=== PATIENT | male | born 1970 | race Caucasian/White ===

== ENCOUNTER 2023-07-03 08:59 | Emergency (ER) | payer BC ==
[~2023-07-03] VITALS: Ht 180.3 cm; Wt 99.8 kg
[~2023-07-03 08:59] MED LIST: BACTRIM DS 8001 TA1 PO; KEFLEX500 MG PO; LISINOPRIL20 MG PO
[2023-07-03] MEDS ORDERED: LOSARTAN-HCTZ1 EAC1 PO (09:27)
[2023-07-03 10:07] LABS: BASO # 0.1 10*3/uL (0.0-0.1); BASO % 1.1 % (0.0-1.0); EOS # 0.2 10*3/uL (0.0-0.4); HEMATOCRIT 48.4 % (42.0-52.0); MEAN CELL VOLUME 90.8 fl (80.0-94.0); MEAN CORPUSCULAR HGB 32.8 pg (27.0-31.0); MEAN CORPUSCULAR HGB CONC 36.2 g/dl (33.0-37.0); MEAN PLATELET VOLUME 7.8 fl (9.6-12.3); MONO # 0.8 10*3/uL (0.1-1.0); MONO % 8.5 % (3.0-9.0); NEUT # 7.5 10*3/uL (2.3-7.9); NEUT % 78.1 % (47.0-73.0); PLATELET COUNT AUTOMATED 240 10*3/uL (130-400); RED BLOOD COUNT 5.33 10*6/uL (4.50-5.90); RED CELL DISTRI WIDTH 11.6 % (0-14.5); WHITE BLOOD COUNT 9.6 10*3/uL (4.8-10.8)
[2023-07-03 10:22] LABS: ACT PARTIAL THROMBO TIME 27.3 SECONDS (20.0-32.1)
[2023-07-03 10:28] LABS: ALKALINE PHOSPHATASE 60 U/L (46-116); CHLORIDE 96 mmol/L (98-107); LIPASE 66 U/L (12-53); POTASSIUM 4.3 mmol/L (3.4-5.1); SGPT/ALT 37 U/L (5-49); TOTAL PROTEIN 7.4 gm/dL (6.0-8.0)
[2023-07-03 10:29] LABS: BUN < 5 mg/dl (9-23)
[2023-07-03] MEDS ORDERED: PREDNISONE50 MG PO (12:29)
[2023-07-03] MEDS ORDERED: CYCLOBENZAPRINE10 MG PO (12:29)
[2023-07-03] MEDS ORDERED: PERCOCET 5-3251 EACH PO (12:29)
== END 2023-07-03 12:35 | disposition home or self-care (01) ==
LOC: ED 08:59
PROVIDERS: Emergency Medicine
DX: S39.012A Strain of muscle, fascia and tendon of lower back, initial encounter (principal); I10 Essential (primary) hypertension; Z98.890 Other specified postprocedural states; X58.XXXA Exposure to other specified factors, initial encounter; Y93.89 Activity, other specified; Y92.89 Other specified places as the place of occurrence of the external cause; Y99.8 Other external cause status